=== PATIENT | female | born 1975 | race Two or more races ===

== ENCOUNTER 2018-06-21 12:03 | Emergency (ER) | payer OTHER ==
[~2018-06-21] VITALS: Ht 152.4 cm; Wt 77.1 kg
--- NOTE | 2018-06-21 12:15 | NUR ---
BIB [facility] 883 WITH C/O OF L RING FINGER TIP AVULSION "I WAS IN THE GYM AND I DROPPED 20lbs WEIGHT", TO ER BED 4, AWAITING MD CASTELLANOS
--- NOTE | 2018-06-21 12:18 | NUR ---
PADMINI PRIETO AT BEDSIDE
[2018-06-21] MEDS ORDERED: LIDOCAINE 0.5% HCL 50 ML VIAL ONE (12:28)
[2018-06-21] MEDS ORDERED: ONDANSETRON HCL/PF 4 MG/2 ML VIAL ONE ×2 (12:29→17:03)
[2018-06-21] MEDS ORDERED: MORPHINE SULFATE INJ 4 MG/ML DISP.SYRIN ONE (12:29)
[2018-06-21] MEDS ORDERED: CEFAZOLIN 1 GM in IV D5W 50 ML IV ONE (12:30)
[2018-06-21] MEDS ORDERED: IV NS 0.9% 1,000 ML BAG IV ONE (12:30)
[2018-06-21] MEDS ORDERED: MORPHINE SULFATE INJ 2 MG/ML DISP.SYRIN IV ONE (12:30)
[2018-06-21] MEDS ORDERED: LIDOCAINE HCL/PF 1% 30 ML VIAL TP ONE (12:30)
[2018-06-21] MEDS ORDERED: TDAP [DIPH/PERTUSSIS/TET] 0.5 ML VIAL IM ONE ×2 (12:30→12:34)
[2018-06-21] MEDS ORDERED: ONDANSETRON HCL/PF 4 MG/2 ML VIAL IVP ONE (12:30)
--- NOTE | 2018-06-21 12:31 | NUR ---
DR CAROLINA PAGED THRU OFFICE
[2018-06-21 12:51] LABS: BASOPHILS # (AUTO) 0.1 /CMM (0.0-0.2); BASOPHILS % (AUTO) 1.2 % (0.0-2.0); EOSINOPHILS % (AUTO) 2.3 % (0.0-6.0); HEMATOCRIT 42 % (33-45); HEMOGLOBIN 14.6 g/dL (11.5-14.8); LYMPHOCYTES # (AUTO) 1.8 /CMM (0.8-4.8); LYMPHOCYTES % (AUTO) 26.4 % (20.0-44.0); MEAN CORPUSCULAR HGB CONC 35 g/dl (31.0-36.0); MEAN CORPUSCULAR VOLUME 92 fL (82-100); MONOCYTES # (AUTO) 0.4 /CMM (0.1-1.30); MONOCYTES % (AUTO) 6.3 % (2.0-12.0); NEUTROPHILS # (AUTO) 4.2 /CMM (1.8-8.9); NEUTROPHILS % (AUTO) 63.8 % (43.0-81.0); PLATELET COUNT (AUTO) 255 /CMM (150-450); RED BLOOD CELL COUNT(AUTO) 4.59 MIL/uL (4.0-5.2); WHITE BLOOD COUNT (AUTO) 6.7 K/uL (4.3-11.0)
--- NOTE | 2018-06-21 12:54 | NUR ---
RADIOLOGY AT BEDSIDE FOR FINGER XRAY.
[2018-06-21 12:58] LABS: CALCIUM, SERUM 8.6 mg/dL (8.5-10.1); CREATININE 0.8 mg/dL (0.6-1.3); POTASSIUM 3.7 mmol/L (3.5-5.1)
--- NOTE | 2018-06-21 13:01 | NUR ---
PADMINI PRIETO AT BEDSIDE FOR DIGITAL BLOCK
[2018-06-21 13:04] LABS: BILIRUBIN,DIRECT 0.1 mg/dL (0.0-0.2); BILIRUBIN,TOTAL 0.4 mg/dL (0.2-1.0)
[2018-06-21 13:05] LABS: ALBUMIN 3.8 g/dL (3.4-5.0); TOTAL PROTEIN, SERUM 8.1 g/dL (6.4-8.2)
--- NOTE | 2018-06-21 13:18 | NUR ---
AFFECTED EXTREMITY FLUSHED. WOUND CARE PROVIDED AND SPLINTED.
--- NOTE | 2018-06-21 13:41 | NUR ---
[place] ON PHONE WITH [facility]. FAXED CLINICALS AND FACE SHEET TO [facility] PER REQUEST
--- NOTE | 2018-06-21 14:26 | NUR ---
[facility] [place] [facility], ACCEPTED BY DR MACIAS. RN TO RN REPORT [phone]. [facility] [id number]
[2018-06-21] MEDS ORDERED: HYDROMORPHONE 1 MG/1 ML DISP.SYRIN ONE ×2 (14:50→17:00)
[2018-06-21] MEDS ORDERED: HYDROMORPHONE 1 MG/1 ML DISP.SYRIN IV ONE (15:00)
--- NOTE | 2018-06-21 15:43 | NUR ---
CALLED [facility] TO ARRANGE A BLS TRANSPORT TO [facility]. WAS GIVEN AN ETA OF 1302 TRIP #: [id number]
--- NOTE | 2018-06-21 16:16 | NUR ---
REPORT GIVEN TO TEZ FISHMAN OF [facility] [phone]
[2018-06-21] MEDS ORDERED: HYDROMORPHONE INJ 0.5 MG/0.5 ML SYRINGE IV ONE (17:00)
[2018-06-21] MEDS ORDERED: ONDANSETRON HCL/PF 4 MG/2 ML VIAL IV ONE (17:00)
[2018-06-21 17:15] VITALS: BP 142/76
--- NOTE | 2018-06-21 17:19 | NUR ---
PT TRANSFERRED TO [facility] IN STABLE CONDITION
== END 2018-06-21 17:21 | disposition short-term general hospital (02) ==
LOC: ER 12:04
DX: S62.665A Nondisplaced fracture of distal phalanx of left ring finger, initial encounter for closed fracture (principal); S67.195A Crushing injury of left ring finger, initial encounter; S61.305A Unspecified open wound of left ring finger with damage to nail, initial encounter; W20.8XXA Other cause of strike by thrown, projected or falling object, initial encounter; Y93.B9 Activity, other involving muscle strengthening exercises; Y92.89 Other specified places as the place of occurrence of the external cause; Y99.8 Other external cause status
CPT/HCPCS: 36415; 73140-TC; 80048-TC; 80076-TC; 84702-TC; 85025-TC; 85730-TC; 90715; A4606; A6402; A6403; J0690; J1170; J2270; J2405; J3490; J7030; J7060; Z7610